=== PATIENT | female | born 1970 | race Caucasian/White ===

== ENCOUNTER 2023-07-16 14:00 | Emergency (ER) | payer OTHER, SELFPAY ==
[2023-07-16] VITALS (32 sets, daily range): BP systolic 118–156; BP diastolic 63–91; PULSE 62–98; RESP 11–23; TEMP 36.6–37.1; O2SAT 93–99
--- NOTE | ~2023-07-16 | XR_ITS ---
EXAMINATION: XR chest 1V portable DATE: 07/16/2023 14:20 INDICATION: Chest pain. TECHNIQUE: A single frontal view of the chest was obtained. COMPARISON: None. FINDINGS: There is no pneumonia, pleural effusion, or pneumothorax. The heart size is normal. IMPRESSION: 1. No acute cardiopulmonary disease. Reviewed, dictated and finalized at location E.
--- NOTE | 2023-07-16 14:03 | ECG_ITS ---
SEE SCANNED COPY FOR CONFIRMED REPORT MTDD
--- NOTE | 2023-07-16 14:24 | ED.GENADULT ---
HPI - General Adult General Chief complaint: Anxiety Stated complaint: anxiety, chest pain Time Seen by Provider: 07/16/23 14:10 History of Present Illness HPI narrative: The patient is a 53-year-old woman with a history of anxiety, hydroxyzine as needed, depression, diabetes. Two weeks ago, she had an anxiety attack and was seen at [facility] in [place] and discharged from the emergency room. Yesterday, she woke up not feeling well, feeling anxious, irritable, not feeling well. Symptoms continued today. She was dizzy, and had a near syncopal episode but she did not collapse to the floor as there were bystanders who helped her go down to the floor. No injuries. She did have 3 episodes of emesis following this episode and subsequently developed pain in the chest, radiating to the jaw and throat area as well as the left arm which continue at present. No fevers or chills. Occasional diaphoresis but that has resolved. She still is feeling very anxious and tearful. No abdominal pain. The patient also reports feeling suicidal, has no immediate plan for suicide. Not homicidal . NO hallucinations or delusions. The has had 4 prior attempts at suicide without seeking medical attention (twice 12/2022: overdose on pills, drive towards a train, once in March 2022, and one other time). She has lost eight friends/family recently, including her . Related Data Home Medications Medication Instructions Recorded Confirmed hydroxyzine HCl 25 mg tablet 25 mg PO TID PRN Anxiety 07/16/23 07/16/23 metformin 500 mg tablet,extended 1,000 mg PO BID 07/16/23 07/16/23 release 24 hr Allergies Allergy/AdvReac Type Severity Reaction Status Date / Time No Known Allergies Allergy Verified 07/16/23 14:17 Review of Systems Review of Systems: All systems reviewed & are unremarkable except as noted in HPI and below Constitutional: Constitutional: Denies chills, Denies excessive sweating, Reports fatigue, Denies fever(s), Denies headache(s) and Denies weakness Eyes: Eyes: Denies change in vision and Denies photophobia ENT: Denies dysphagia, Reports dizziness, Denies headache(s), Denies lip swelling, Denies nasal congestion, Denies sore throat and Denies tongue swelling Cardiovascular: Cardiovascular: Reports chest pain, Denies syncope (but near syncope noted today), Denies rapid heart rate and Denies dyspnea Respiratory: Respiratory: Denies cough, Denies dyspnea and Denies wheezing Gastrointestinal: Gastrointestinal: Denies abdominal pain, Denies constipation, Denies dysphagia, Denies diarrhea, Reports nausea and Reports vomiting Genitourinary: Genitourinary: Denies hematuria, Denies urinary frequency, Denies dysuria and Denies urinary urgency Musculoskeletal: Musculoskeletal: Denies back pain, Denies myalgias, Denies arthralgias, Denies joint swelling and Denies numbness Integumentary/Breasts: Skin/Breast: Denies pruritus, Denies erythema and Denies rash Neurologic: Denies confusion, Reports dizziness, Denies syncope, Denies headache(s), Denies focal weakness and Denies numbness Psychiatric: Psychiatric: Reports anxiety and Denies confusion Endocrine: Endocrine: Denies excessive sweating Hematologic/Lymphatic: Hematologic/Lymphatic: Denies easy bleeding and Denies easy bruising Allergic/Immunologic: Allergic/Immunologic: Denies lip swelling, Denies tongue swelling and Denies wheezing PMFSH Social History Social History Substance use type: does not use Exam Const: General: healthy appearing, no acute distress, alert and well nourished Nutritional Appearance: well nourished Orientation/consciousness: patient oriented x3 Limitations: no limitations Other: tearful, anxious HENMT: Head: normal to inspection Ears: external ears normal Face/Nose/Sinus: normal facial exam Face and sinus: normal facial exam Mouth: Yes moist mucous membranes Throat: posterio
[2023-07-16] MEDS: SODIUM CHLORIDE 0.9% IV 1,000 ML 999 ML IV CONT (14:28)
[2023-07-16] MEDS: ONDANSETRON INJ 4 MG/2 ML VIAL IV PUSH (14:28)
[2023-07-16] MEDS: ASPIRIN 81 MG CHEWABLE TABLET 324 MG PO (14:31)
[2023-07-16] MEDS: LORazepam INJ (*CRX) 2 MG/ML VIAL 0.5 MG IV PUSH (14:31)
[2023-07-16 15:20] LABS: Basophils Absolute Auto 0.07 K/mm3 (0.00-0.10); Basophils Percent Auto 0.8 % (0.0-1.0); Eosinophils Absolute Auto 0.25 K/mm3 (0.02-0.50); Eosinophils Percent Auto 2.8 % (1.0-6.0); Hematocrit 31.9 % (35.0-49.0); Hemoglobin 10.7 g/dL (12.0-15.0); Immature Granulocyte Absolute 0.02 K/mm3 (0.00-0.00); Immature Granulocyte Percent A 0.2 % (0.0-0.0); Lymphocytes Absolute Auto 1.88 K/mm3 (1.10-4.50); Mean Corpuscular HGB Conc 33.5 g/dL (32-36); Mean Corpuscular Hemoglobin 27.6 pg (27.0-31.0); Mean Corpuscular Volume 82.2 fL (78.0-102.0); Mean Platelet Volume 10.5 fl (9.2-11.8); Monocytes Absolute Auto 0.51 K/mm3 (0.10-0.90); Monocytes Percent Auto 5.7 % (2.0-11.0); Neutrophils Absolute Auto 6.22 K/mm3 (1.70-7.20); Neutrophils Percent Auto 69.5 % (50.0-70.0); Platelet Count Result 316 K/mm3 (150-420); Red Blood Count 3.88 M/mm3 (4.20-5.40); Red Cell Distribution Width 13.4 % (11.6-14.4)
--- NOTE | 2023-07-16 15:28 | PC.NURSE ---
pt states she cant keep her anxiety under control. states she wishes she was . states I just want to . states she has been thinking this off and on for past several months. denies making a plan or attempting to end her life. pt tearful.
[2023-07-16 15:41] LABS: Alanine Aminotransferase 30 U/L (14-59); Albumin Level 3.5 g/dL (3.4-5.0); Alkaline Phosphatase 123 U/L (46-116); Anion Gap 10 mmol/L (4-12); Aspartate Amino Transferase 14 U/L (15-37); Bilirubin,Total 0.3 mg/dL (0.00-1.00); Blood Urea Nitrogen 10 mg/dL (7-18); Calcium 8.7 mg/dL (8.5-10.1); Carbon Dioxide 30 mmol/L (21-32); Chloride 101 mmol/L (98-108); Estimated CRCL calculation 65 ml/min; Estimated Glomerular Filt Rate 54; Glucose 315 mg/dL (70-99); NT Pro B Type Natriuretic Pept 47 pg/mL (0-125); Osmolality Calculated 303 mOsm/kg (285-295); Potassium 3.9 mmol/L (3.5-5.1); Sodium 141 mmol/L (136-145); Total Protein 7.7 g/dL (6.4-8.2); Troponin I 6.5 ng/L (0.00-60.4)
[2023-07-16 15:46] LABS: Thyroid Stimulating Hormone Reflex 8.62 u/IU/mL (0.36-3.74)
[2023-07-16 16:19] LABS: Free T4 Free Thyroxine Reflex 0.74 ng/dL (0.76-1.46)
[2023-07-16 16:23] LABS: Bilirubin Urine Negative (Negative); Blood Urine Negative (Negative); Color Urine Light Yellow (Yellow); Glucose Urine UA 3+ (Negative); Ketones Urine Negative (Negative); Leukocyte Esterase Ur Negative LEU/UL (Negative); Magnesium 1.8 mg/dL (1.8-2.4); Nitrate Urine Positive (Negative); Protein Urine Negative (Negative); Salicylate 1.6 mg/dL (2.8-20.0); Specific Grav Ur 1.015 (1.010-1.020); Urobilinogen Urine 0.2 mg/dL (0.2-1.0); pH Urine 6.5 (5.0-8.0)
[2023-07-16 16:23] LABS: Amphetamine Screen Urine Negative (Negative); Barbiturate Screen Urine Negative (Negative); Benzodiazepines Screen Urine Negative (Negative); Cannabinoid Screen Urine Negative (Negative); Cocaine Screen Urine Negative (Negative); Methadone Screen Urine Negative (Negative); Opiate Screen Urine Negative (Negative); Phencyclidine Screen Urine Negative (Negative)
[2023-07-16 16:29] LABS: Acetaminophen < 2 ug/mL (10-30); Ethanol < 3 mg/dL (0-6)
[2023-07-16 16:30] LABS: Add Urine Microscopic? YES; Appearance Urine Sl Cloudy (Clear); Bacteria Urine 4+ /hpf; RBC Urine 0-2 /hpf (0-2); WBC Clumps Urine Present /hpf
[2023-07-16] MEDS: INSULIN HUMAN REGULAR (*BKC) 1,000 UNITS/10 ML VIAL 8 UNITS SUB-Q (17:34)
[2023-07-16 18:29] LABS: Troponin I 6.4 ng/L (0.00-60.4)
[2023-07-16 18:57] LABS: Glucose 214 mg/dL (70-99)
--- NOTE | 2023-07-16 20:42 | PC.NURSE ---
pt has been moved to safe room. sitter at bedside. [facility] staff speaking with her supervisor grounds, recommending voluntary in-pt treatment.
--- NOTE | 2023-07-16 21:34 | PC.NURSE ---
I gave patient a turkey sandwich,chips, pudding and a Sprite to drink.
--- NOTE | 2023-07-16 23:00 | PC.NURSE ---
Pt resting and sleeping, RR even and nonlabored, sitter at bedside.
--- NOTE | 2023-07-17 | PC.NURSE ---
Pt sleeping, no changes, sitter remains at bedside.
[2023-07-17 00:30] VITALS: BP 130/66; PULSE 68; RESP 17; TEMP 36.4; O2SAT 98
--- NOTE | 2023-07-17 01:00 | PC.NURSE ---
Pt sleeping, accepted at [facility] p nurse report given to Shereen Pt accepted by Dr Hood. POC to transfer p 8 am this morning.
[2023-07-17 01:23] LABS: SARS-CoV-2 RNA PCR Negative (Negative)
--- NOTE | 2023-07-17 02:00 | PC.NURSE ---
Pt sleeping, sitter remains at bedside.
[2023-07-17 02:30] VITALS: BP 130/68; PULSE 70; RESP 18; TEMP 36.8; O2SAT 98
--- NOTE | 2023-07-17 03:07 | PC.NURSE ---
Pt awake, sitting up in bed, explained POC and acceptance for transfer to [facility] in AM. Pt aware of POC. Pt given Sprite per request.
--- NOTE | 2023-07-17 04:06 | PC.NURSE ---
Pt resting, watching TV, no needs. patient safety sitter continues at bedside.
--- NOTE | 2023-07-17 05:00 | PC.NURSE ---
Pt sleeping, resting comfortably, RR even and nonlabored, sitter at bedside. Awaiting transfer to [facility] p 8 am this morning.
--- NOTE | 2023-07-17 06:21 | PC.NURSE ---
Pt continues to sleep, sitter at bedside, no changes.
[2023-07-17 06:39] VITALS: BP 134/74; PULSE 74; RESP 18; TEMP 36.8; O2SAT 99
--- NOTE | 2023-07-17 07:04 | PC.NURSE ---
breakfast tray ordered. awaiting pt to eat breakfast for transfer to [facility]. sitter at bedside. report from porfirio gunderson. pt is resting on stretcher at this time. nad noted. will continue to monitor.
[2023-07-17] MEDS: CEPHALEXIN 500 MG CAPSULE PO (07:24)
--- NOTE | 2023-07-17 07:37 | PC.NURSE ---
pt was woke to eat breakfast and take mediation. pt reports she needs to notify neighbor to take care of her animals. Jazmyne SILVA, got pt cell phone out for pt to obtain the number and the phone was not charged. Pt becomes upset, crying how am I supposed to trust anyone when all they do is lie to me. pt states she was told last pm that someone would charge her phone. Pt complies with treatment, however mumbles complaints throughout the process. pt does calm down and is cooperative with care. EMS notified for transfer. will continue to monitor. sitter is at bedside.
[2023-07-17 08:00] VITALS: BP 132/70; PULSE 78; RESP 18; TEMP 36.7; O2SAT 99
[2023-07-18 00:18] LABS: Glucose Point of Care 247 mg/dl (65-105)
--- NOTE | 2023-07-19 13:43 | PC.NURSE ---
final urine culture results: ISOLATE1: GREATER THAN 100,000 CFU/ML OF ESCHERICHIA COLI PER C&S AND DR FUNG, NO ACTION NEEDED. CONTINUE WITH PLAN OF CARE.
== END 2023-07-17 08:00 ==
PROVIDERS: Emergency Provider Emergency Medicine; PCP Family Medicine
DX: F32.A Depression, unspecified (principal); R45.851 Suicidal ideations; N39.0 Urinary tract infection, site not specified; R07.9 Chest pain, unspecified; F41.9 Anxiety disorder, unspecified; Z79.84 Long term (current) use of oral hypoglycemic drugs; Z11.52 Encounter for screening for COVID-19
CPT/HCPCS: 36415; 71045; 80053; 80307; 81001; 82947; 82948; 83735; 83880; 84439; 84443; 84484; 85025; 87077; 87086; 87088; 87186; 87635; 93005; 96361; 96365; 96375; 99285; A9270; J0696; J1815; J2060; J2405; J7030